=== PATIENT | female | born 1965 | race Two or more races ===

== ENCOUNTER 2019-09-21 12:38 | Emergency (ER) | payer OTHER ==
[~2019-09-21] VITALS: Ht 162.6 cm; Wt 69.9 kg
--- NOTE | 2019-09-21 12:49 | NUR ---
NII FROM CHECK CASHING. TO ER BED 4. AAOX4. ANXIOUS. NOT IN RESP DISTRESS. AMBULATORY. CAME IN FOR CHEST PAIN. PER PT, PAIN STARTED @ 1215 WHILE SHE WAS AT A CHECK CASHING PLACE. IT WAS A SUDDEN ONSET SHARP PAIN WHICH IS REPORTED BETTER DURING ASSESSMENT. DURING ASSESSMENT, PAIN IS 3/10 DULL NO RAQDIATING OVER THE STERNAL AREA. MD WAS AT BEDSIDE FOR EVAL. ORDERS RECEIVED, NOTED AND CARRIED OUT. EKG DONE BY EMT. PLACE ON MONITOR.
[2019-09-21 13:09] LABS: BASOPHILS # (AUTO) 0.1 /CMM (0.0-0.2); BASOPHILS % (AUTO) 0.9 % (0.0-2.0); EOSINOPHILS % (AUTO) 3.6 % (0.0-6.0); HEMATOCRIT 42 % (33-45); HEMOGLOBIN 13.8 g/dL (11.5-14.8); LYMPHOCYTES # (AUTO) 2.2 /CMM (0.8-4.8); LYMPHOCYTES % (AUTO) 32.3 % (20.0-44.0); MEAN CORPUSCULAR HGB CONC 33 g/dl (31.0-36.0); MEAN CORPUSCULAR VOLUME 92 fL (82-100); MONOCYTES # (AUTO) 0.6 /CMM (0.1-1.30); NEUTROPHILS # (AUTO) 3.8 /CMM (1.8-8.9); NEUTROPHILS % (AUTO) 55.2 % (43.0-81.0); PLATELET COUNT (AUTO) 251 /CMM (150-450); RED BLOOD CELL COUNT(AUTO) 4.61 MIL/uL (4.0-5.2)
[2019-09-21 13:17] LABS: CARBON DIOXIDE 26 mmol/L (21-32); CHLORIDE 103 mmol/L (98-107); CREATININE 0.7 mg/dL (0.6-1.3); GLUCOSE 95 mg/dL (74-106); POTASSIUM 3.8 mmol/L (3.5-5.1); SODIUM SERUM 138 mmol/L (136-145); UREA NITROGEN, BLOOD 13 mg/dL (7-18)
[2019-09-21 13:41] VITALS: BP 123/64
--- NOTE | 2019-09-21 13:41 | NUR ---
Patient discharged to home in stable condition. Written and verbal after care instructions given. Patient verbalizes understanding of instruction. Denies any pain at this time. Ambulatory with steady gait.
== END 2019-09-21 13:41 | disposition home or self-care (01) ==
LOC: ER 13:16
DX: R07.89 Other chest pain (principal); F41.9 Anxiety disorder, unspecified; J45.909 Unspecified asthma, uncomplicated
CPT/HCPCS: 36415; 71045-TC; 80048-TC; 84484-TC; 85025-TC